=== PATIENT | male | born 1975 | race Caucasian/White ===

== ENCOUNTER 2024-10-23 10:39 | Emergency (ER) | payer OTHER, SELFPAY ==
[2024-10-23 10:47] VITALS: BP 134/99
--- NOTE | 2024-10-23 11:05 | ED.GENMED ---
History of Present Illness
General
Chief Complaint: DVT/Possible Blood Clot
Time Seen by Provider: 10/23/24 10:51
History of Present Illness
History of Present Illness:
49-year-old male presents to the emergency department for evaluation of right anterior lower leg pain and swelling, states he was restraining a client at work when his leg struck a table became pinched in between the table. This occurred 11 days
ago and he has had persistent swelling and discomfort since. He is concerned for a DVT although he is currently on rivaroxaban. No calf pain. Able to walk with minimal discomfort
Past History
Past History
ED Past Medical History: Other (Venous insufficiency)
ED Past Surgical History: Negative Cardiac
Social History
Tobacco: Non-smoker
Alcohol: None
Drug: None
Personal:
Living: with family
Employment: Employed
Family History
Family History: Other (Mother and sister with blood clots)
Review of Systems
Review of Systems
Allergies reviewed?: Yes
All Other Systems: ROS reviewed and negative except as documented in HPI and ROS
Phy Exam
Physical Exam
Physical Exam:
GEN: Well appearing, NAD, WDWN
HEENT: Oral mucosa moist, no scleral icterus
Cardiac: Regular rate
Lung: No respiratory distress, no tachypnea
MSK: No gross deformity or injuries. Palpable hematoma to the right anterior lower leg, no pulsatile quality. No pain with passive stretch of the right ankle, calf is soft with no rigidity or tenderness
Skin: Good color, no pallor or jaundice, no rashes
Neuro: AO x3, moves all extremities freely
Psych: Calm, cooperative
Course
Vital Signs
Initial and Last Documented VS:
Initial Vital Signs
Temp Pulse Resp BP Pulse Ox
99.5 F 89 18 134/99 97
10/23/24 10:47 10/23/24 10:47 10/23/24 10:47 10/23/24 10:47 10/23/24 10:47
Last Documented Vital Signs
Temp Pulse Resp BP Pulse Ox
99.5 F 89 18 134/99 97
10/23/24 10:47 10/23/24 10:47 10/23/24 10:47 10/23/24 10:47 10/23/24 10:47
MDM/Problems Addressed
MDM/Problems Addressed:
This is an anterior lower leg hematoma with no evidence for compartment syndrome, no indication for ultrasound
*Critical Care Note
Total Time (30-74mins, 75-104mins- exclusive of procedures): Not Applicable
ED Attending Note
-
Portions of this chart may have been created with voice recognition software.� Occasional wrong word or��sound alike� substitutions may have occurred due to the inherent limitations of voice recognition software.
Discharge Plan
Departure
Patient Disposition: Home (Routine Discharge)
Date of Disposition: 10/23/24
Time of Disposition: 11:06
Patient with high blood pressure during this ER visit?: No
Discharge Problem:
Hematoma of right lower extremity
Instructions: Hematoma
Prescriptions:
No Action
rivaroxaban [Xarelto] 10 MG tablet
10 mg PO DAILY
Interventions
Interventions:
*Risk Screen - Suicide Last Done: 10/23/24 10:47
*General Assessment Last Done: 10/23/24 10:47
*Neglect/Abuse Screening Last Done: 10/23/24 10:47
*Nursing Disposition Last Done: 10/23/24 11:10
Discharge Date and Time
Discharge Date/Time: 10/23/24 11:20
Print Language: [id number]
== END 2024-10-23 11:20 | disposition home or self-care (01) ==
LOC: EMR 10:39
PROVIDERS: EMERGENCY PHYSICIAN Emergency Medicine; FAMILY PHYSICIAN Family Medicine
DX: S80.11XA Contusion of right lower leg, initial encounter (principal); W23.0XXA Caught, crushed, jammed, or pinched between moving objects, initial encounter; Y99.0 Civilian activity done for income or pay; I87.2 Venous insufficiency (chronic) (peripheral); Z79.01 Long term (current) use of anticoagulants
CPT/HCPCS: 99282